=== PATIENT | male | born 1960 ===

== ENCOUNTER 2016-10-29 16:02 | Outpatient (CLI) | payer BC | END 2016-10-29 16:03 | disposition home or self-care (01) | LOC: LABHHL 16:02 → LAB 16:02 | PROVIDERS: ATTEND Internal Medicine Gastroenterology | DX: Z12.31 Encounter for screening mammogram for malignant neoplasm of breast (principal); D12.4 Benign neoplasm of descending colon; D12.5 Benign neoplasm of sigmoid colon; K62.1 Rectal polyp | CPT/HCPCS: 88305 ==